=== PATIENT | female | born 1960 | race Caucasian/White ===

== ENCOUNTER 2020-03-11 10:54 | Outpatient (CLI) | payer OTHER, SELFPAY ==
--- NOTE | 2020-03-11 11:02 | MM_ITS ---
WS: [id number] BILATERAL SCREENING DIGITAL MAMMOGRAM WITH CAD HISTORY: SCREENING COMPARISON: 12/21/2018, 11/21/2017 and 01/09/2015 Bilateral CC and MLO views submitted. Computer aided detection analyzed. Breast composition: The breasts are heterogeneously dense, which may obscure small masses. No suspici ous masses, microcalcifications or architectural distortion. There is an area of distortion noted in the posterior lateral RIGHT breast which has been present on multiple prior examinations. No progress ion. No enlarging masses or calcifications. MM/[id number] IMPRESSION: BI-RADS: 2-Benign FOLLOW UP: 1 Year Follow-up
== END 2020-03-11 10:55 | disposition home or self-care (01) ==
LOC: RADSHAW 10:58
PROVIDERS: PCP Family Medicine; Visit Provider Nurse Practitioner Women's Health
DX: Z12.31 Encounter for screening mammogram for malignant neoplasm of breast (principal)
CPT/HCPCS: 77067

== ENCOUNTER → 2020-11-20 09:20 | Outpatient (BNVA) | payer OTHER, SELFPAY | PROVIDERS: PCP Family Medicine; Visit Provider Nurse Practitioner Women's Health | DX: Z12.4 Encounter for screening for malignant neoplasm of cervix (principal) | CPT/HCPCS: 88175 ==

== ENCOUNTER 2021-05-12 08:36 | Outpatient (CLI) | payer OTHER, SELFPAY ==
--- NOTE | 2021-05-12 08:47 | MM_ITS ---
WS: [id number] BILATERAL SCREENING 3D TOMOSYNTHESIS DIGITAL MAMMOGRAM WITH CAD HISTORY: Z12.39 - Encounter for other screening for malignant neoplasm. COMPARISON: 03/11/2020, 12/21/2018 and 01/09/2015 Bilateral CC and MLO views submitted. Computer aided detection analyzed. Breast composition: The breasts are heterogeneously dense, which may obscure small masses. No suspici ous masses, microcalcifications or architectural distortion. Asymmetries are stable throughout both b reasts. These asymmetries are most significant towards the upper outer quadrants. MM/[place] [id number] IMPRESSION: BI-RADS: 2-Benign FOLLOW UP: 1 Year Follow-up
== END 2021-05-12 08:37 | disposition home or self-care (01) ==
LOC: RADSHAW 08:39
PROVIDERS: PCP Family Medicine; Visit Provider Nurse Practitioner Women's Health
DX: Z12.31 Encounter for screening mammogram for malignant neoplasm of breast (principal)
CPT/HCPCS: 77063; 77067

== ENCOUNTER 2022-01-14 12:13 | Outpatient (CLI) | payer OTHER, SELFPAY ==
--- NOTE | 2022-01-14 13:00 | XR_ITS ---
WS: [id number] DEXA (DUAL ENERGY X-RAY ABSORPTIOMETRY) Bone mineral density was performed using a Tyto machine. HISTORY: Z78.0 - Asymptomatic menopausal state COMPARISON: 09/25/2017 Lumbar spine BMD (L1-L4): 0.977 g/cm2 T score: -1.7 Z score: -0.7 Total hip BMD: Left: 0.797 g/cm2. T score: -1.7 Z score: -0.9 Right: 0.809 g/cm2. T score: -1.6 Z score: -0.8 10 year probability of a major osteoporotic fracture is 17.8%. Compared to the prior study from 09/25/2017. Lumbar spine bone mineral density has decreased by 0.6%. Bilateral hips bone mineral density has decreased by 4.4%. XR/XR DEXA axial skeleton* [id number] IMPRESSION: OSTEOPENIA based upon the WHO classification for females. Significant decrease in bone mineral density within the hips since the prior .
== END 2022-01-14 12:14 | disposition home or self-care (01) ==
LOC: RAD 12:14
PROVIDERS: PCP Family Medicine; Visit Provider Nurse Practitioner Women's Health
DX: Z78.0 Asymptomatic menopausal state (principal); M85.80 Other specified disorders of bone density and structure, unspecified site
CPT/HCPCS: 77080

== ENCOUNTER 2022-07-07 08:03 | Outpatient (CLI) | payer OTHER, SELFPAY ==
--- NOTE | 2022-07-07 08:09 | MM_ITS ---
WS: [id number] Bilateral screening 3D tomosynthesis digital mammogram, 07/07/2022 Clinical Data: SCREENING Comparison: 05/12/2021, 03/11/2020, 12/21/2018, 11/21/2017, 01/09/2015, 08/21/2012, 10/10/2008, 09/14/2006. Findings: The breast parenchymal pattern shows heterogeneous density. No spiculated masses or clustered calcifi cations are seen. There are no secondary signs of carcinoma. MM/[place] [id number] Impression: 1. Negative bilateral mammogram unchanged. 2. Recommend annual screening mammograms. BIRADS: 1-Negative FOLLOW UP: 1 Year Follow-up The CAD case checker was used.
== END 2022-07-07 08:04 | disposition home or self-care (01) ==
LOC: RAD 08:06
PROVIDERS: PCP Family Medicine; Visit Provider Family Medicine
DX: Z12.31 Encounter for screening mammogram for malignant neoplasm of breast (principal)
CPT/HCPCS: 77063; 77067

== ENCOUNTER 2023-07-10 08:17 | Outpatient (CLI) | payer OTHER, SELFPAY ==
--- NOTE | 2023-07-10 08:24 | MM_ITS ---
WS: [id number] BILATERAL SCREENING DIGITAL TOMOSYNTHESIS MAMMOGRAM WITH CAD HISTORY: SCREENING COMPARISON: 07/07/2022, 05/12/2021 and 03/11/2020 Bilateral CC and MLO views with tomosynthesis and synthetic mammography submitted. Computer aided det ection analyzed. Breast composition: The breasts are heterogeneously dense, which may obscure small masses. No suspici ous masses, microcalcifications or architectural distortion. MM/[place] [id number] IMPRESSION: BI-RADS: 1-Negative FOLLOW UP: 1 Year Follow-up
== END 2023-07-10 08:18 | disposition home or self-care (01) ==
LOC: RAD 08:18
PROVIDERS: PCP Family Medicine; Visit Provider Nurse Practitioner Women's Health
DX: Z12.31 Encounter for screening mammogram for malignant neoplasm of breast (principal)
CPT/HCPCS: 77063; 77067

== ENCOUNTER → 2024-02-07 08:41 | Outpatient (BNVA) | payer OTHER, SELFPAY | PROVIDERS: PCP Family Medicine; Visit Provider Nurse Practitioner Women's Health | DX: N95.0 Postmenopausal bleeding (principal) | CPT/HCPCS: 76830 ==

== ENCOUNTER 2024-07-24 08:12 | Outpatient (CLI) | payer OTHER, SELFPAY ==
--- NOTE | 2024-07-24 08:13 | MM_ITS ---
WS: [id number] BILATERAL SCREENING DIGITAL TOMOSYNTHESIS MAMMOGRAM WITH CAD HISTORY: SCREENING COMPARISON: 07/10/2023, 07/07/2022, 11/21/2017 Bilateral CC and MLO views with tomosynthesis and synthetic mammography submitted. Computer aided detection analyzed. Breast composition: The breasts are heterogeneously dense, which may obscure small masses. No suspicious masses, microcalcifications or architectural distortion. Bilateral asymmetries in the upper outer quadrants greater on the RIGHT. No interval change since at least 2017. MM/MM scr BI tomosynthesis [id number] IMPRESSION: BI-RADS: 2 - Benign FOLLOW UP: 1 Year Follow-up
== END 2024-07-24 08:13 | disposition home or self-care (01) ==
PROVIDERS: PCP Family Medicine; Visit Provider Family Medicine
DX: Z12.31 Encounter for screening mammogram for malignant neoplasm of breast (principal); R92.333 Mammographic heterogeneous density, bilateral breasts; N64.89 Other specified disorders of breast
CPT/HCPCS: 77063; 77067

== ENCOUNTER 2024-10-19 08:12 | Emergency (ER) | payer OTHER, SELFPAY ==
--- OUTSIDE RECORDS SUMMARY | 2024-10-19 08:20 | XMS_ITS | Clinical Summary ---
Author Organization [facility] Address [address] [place] [address] Phone Care Team Providers Care Olive Grower Name Role Phone Son Guajardo MD Primary Care Provider [phone] Allergies Active Allergy Reactions Criticality Noted Date Comments Celecoxib Rash Low 08/31/2023 Medications acetaminophen (Tylenol Extra Strength) 500 mg tablet Take 500 mg by mouth daily. Active calcium carb/vitamin D3/vit K1 (CALCIUM SOFT CHEW ORAL) Take 1,200 mg by mouth daily. 12/20/2022 Active cetirizine (ZyrTEC) 10 mg tablet Take 10 mg by mouth daily. 06/19/2020 Active cholecalciferol , vitamin D3, (Vitamin D3) 5,000 unit Take 5,000 Units by mouth daily. 08/18/2015 Active B-complex with vitamin C (ALLBEE/C ORAL) 02/19/2020 Act mckay alendronate (FOSAMAX) 70 mg tablet Take 70 mg by mouth. Active Belkys 0.025 mg/24 hr patch Apply 1 Patch to skin as directed. 12/27/2023 Active estradioL (ESTRACE) 0.01% (0.1 mg/g) vaginal cream Insert vaginally. 12/27/2023 Active progesterone micronized (PROMETRIUM) 100 mg Capsule Take 200 mg by mouth daily. Active Estradiol-Noret hindrone Acet (COMBIPATCH) 0.05-0.25 mg/24 hr patch Apply 1 Patch to skin as directed twice weekly. 1 Patch 4 05/07/2024 Active Active Problems Problem Noted Date Diagnosed Date PMB (postmenopausal bleeding) 04/17/2024 Syncope 01/12/2023 Encounters Date Type Department Care Team Description 10/08/2024 External Device Data [facility] ABSTRACTION Provider, Abstract 08/27/2024 External Device Data [facility] ABSTRACTION Provider, Abstract 07/30/2024 External Device Data [facility] ABSTRACTION Provider, Abstract 07/24/2024 External Device Data [facility]STRACTION Provider, Abstract 07/24/2024 External Device Data [facility] ABSTRACTION Provider, Abstract from Last 3 Months Family History Medical History Relation Name Comments Arrhythmia Mother Roseanna Intermittent a- fib Diabetes Mother Roseanna Heart Attack Mother Roseanna Heart attack Se ptember 2019 Heart Disease Mother Roseanna High Cholesterol Mother Roseanna Hypertension Mother Roseanna Other Mother Roseanna Diabetes, kidne y failure Relation Name Status Comments Mother Roseanna Alive Sister Alive Social History Tobacco Use Types Packs/Day Years Used Date Smoking Tobacco: Former Cigarettes 0.3 5.2 1 980 - 09/22/1985 Smokeless Tobacco: Never Tobacco Cessation:Counseling Given: Not Answered Comments:I didn't smoke very often and quit almost 40 years ago Alcohol Use Standard Drinks/Week Comments Never 0 (1 standard drink = 0.6 oz pur e alcohol) Comments No Sex and Gender Information Value Date Recorded Sex Assigned at Not on file Legal Sex Female 3:49 PM CDT Gender Identity Not on file Sexual Orientation Not on file Last Filed Vital Signs Vital Sign Reading Time Taken Comments Blood Pressure 116/74 04/30/2024 9:05 AM HOG OPERATOR Pulse 51 04/17/2024 1:00 PM HOG OPERATOR Temperature 36.5 C (97.7 F) 04/17/2024 12:07 PM HOG OPERATOR Respiratory Rate 16 04/17/2024 1:00 PM HOG OPERATOR Oxygen Saturation 100% 04/17/2024 1:00 PM HOG OPERATOR Inhaled Oxygen Concentration - - Weight 70.4 kg (155 lb 3.2 oz) 04/30/2024 9:05 A M HOG OPERATOR Height 167.6 cm (5' 6 ) 04/30/2024 9:05 AM HOG OPERATOR Body Mass Index 25.05 04/30/2024 9:05 AM HOG OPERATOR Plan of Treatment Upcoming Encounters Date Type Department Care Team (Late st Contact Info) Description 12/27/2024 9:00 AM CDT Office Visit [facility] Odilia Andrew Jaison [address] [address] Luc Dickson, DO [address] [facility] [place] [address] Health Maintenance Due Date Last Done Comments Pre-Diabetes and Diabetes Screening 1961 HPV/Cotest (21-29) 1982 CERVICAL CANCER SCREENING 1991 HPV/Cotest (30-65) 1991 PAP SMEAR 1991 DTAP/TDAP/TD VACCINES (1 - Tdap) 09/23/1997 09/22/18 98 COLORECTAL SCREENING 2006 Colorectal Cancer Screening 2006 FIT-DNA Q 3 years 2006 FIT/FOBT Q 1 year 2006 Flex Sig/CT Colonography Q 5 years 2006 ZOSTER VACCINE (2 of 2) 10/10/2022 08/15/2022 BREAST CANCER SCREENING 07/09/2024 07/10/2023, 07/07 INFLUENZA VACCINE (#1) 2024 , 10/24/2022, 10/25/2021, Additional history exists RSV VACCINE (60+ or ) (1 - 1-dose 75+ series) 01/03/2036 COVID-19 Vaccine Completed 11/22/2023, , 02/03/2021, Additional history exists Procedures Procedure Name Priority Date/Time Associated Diagnosis Comments MAMMO SCREEN BILAT W OR WO CAD Routine 07/10/2023 9:39 AM CDT from Last 3 Months or Most Recently Relevant to Health Maintenance Results * MAMMO SCREEN BILAT W OR WO CAD (07/10/2023 9:39 AM CDT) Anatomical Region Laterality Modality Breast Bilateral Mammography us Abstract Provider MAMMO ORDERABLES Edited Result - Final from Last 3 Months or Most Recently Relevant to Health Maintenance Insurance [place] [id number] [address] [id number] Advance Directives For more information, please contact: [phone] * Full Code (Latest Code Status on File) Date Activated Date Inactivated Comments 04/17/2024 9:19 AM 04/17/2024 3:30 PM Care Teams Olive Grower Relationship Specialty Start Date End Date Son Guajardo MD [address] [phone] PCP - General Family Practice 12/16/22
[2024-10-19 08:29] VITALS: BP 125/82; PULSE 82; RESP 17; TEMP 37.1; O2SAT 96; BMI 25.4
[2024-10-19] MEDS: tetanus-dipt-pertussis 0.5 mL SDV IM (09:25)
[2024-10-19] MEDS: rabies vaccine 2.5 unit SDV IM (09:27)
[2024-10-19] MEDS: rabies IG 300 unit/mL SDV 1 mL 1440 UNIT IM (09:29)
--- NOTE | 2024-10-19 09:44 | PC.NURSE ---
After drawing up all medications and scanning all of the vaccines, pt decided that she did not want to get any of the rabies vaccines. Pt spoke with physician in detail regarding having the cat euthanized and tested before possibly receiving the vaccines. Pt wants to wait and if the cat comes back positive for rabies she will then get the vaccinations.
--- NOTE | 2024-10-19 09:45 | PC.NURSE ---
I wasted 1 rabavert rabies vaccination and 2 syringes of 4.8 ml of rabies immuno globulin vaccine. Tanika Peguero witnessed me disposing of the vaccinations.
--- NOTE | 2024-10-19 09:52 | W.ED.ANIMALB ---
HPI - Animal Bite General: Chief Complaint: Animal Bite Stated Complaint: Cat bite L pointer finger R shoulder Time Seen by Provider: 10/19/24 08:15 History of Present Illness: 64-year-old female presents emergency room after being bitten by a feral cat. Her sister had found an abandoned cath that seemed in poor health they took it and began nursing and after this the Was picked up by the patient was bit on the left index finger on the right shoulder. This occurred yesterday. Unsure of last tetanus. They still do have a cat in their possession. Related Data Home Medications ?Medication ?Instructions ?Recorded ?Confirmed cetirizine 10 mg capsule (Zyrtec) 10 mg PO DAILY PRN allergy symptoms 11/20/19 02/19/24 cholecalciferol (vitamin D3) 25 25 mcg PO DAILY 11/20/19 02/19/24 mcg (1,000 unit) capsule multivitamin 1 cap PO DAILY 11/20/19 02/19/24 calcium carbonate (Joo-Mint) 260 mg PO DAILY 12/16/22 02/19/24 clotrimazole 1 % topical cream 1 applic topical BID 02/19/24 02/19/24 (Antifungal (clotrimazole)) Previous Rx's ?Medication ?Instructions ?Recorded estradiol 0.01% (0.1 mg/gram) 1 g vaginal .COMPLEX #42.5 grams 12/26/23 vaginal cream (Estrace) estradiol 0.025 mg/24 hr See Rx Instructions .Route 02/22/24 semiweekly transdermal patch .COMPLEX #24 patches (Belkys) progesterone micronized 100 mg See Rx Instructions .Route 10/07/24 capsule .COMPLEX #180 caps amoxicillin 875 mg-potassium 1 tab PO BID #20 tabs 10/19/24 clavulanate 125 mg tablet Allergies Allergy/AdvReac Type Severity Reaction Status Date / Time celecoxib (From Celebrex) Allergy ALGY-Rash Verified 10/19/24 08:31 [facility] ED PFSH: Medical History Osteoporosis followed by [facility]; waiting to get approval for Prolia No pertinent past medical history neghx: htn,dm,thyroid,dvt/pe PCP: Son Guajardo Surgical History History of tonsillectomy and adenoidectomy History of appendectomy H/O tubal ligation Done at the time of section. H/O section Family History Mother Diabetes Hypertension Heart disease Hyperlipidemia Denies family history of Colon cancer Ovarian cancer Breast cancer Family history of thyroid problem Uterine cancer Stroke Social History Smoking and tobacco/nicotine status: never used tobacco/nicotine Physical Exam Const: COMMON NORMALS: no acute distress GENERAL APPEARANCE: cooperative and comfortable ORIENTATION/CONSCIOUSNESS: Yes awake, Yes oriented to person, Yes oriented to place and Yes oriented to time HENMT: COMMON NORMALS: normocephalic, atraumatic and hearing grossly normal bilaterally HEAD & SCALP: normocephalic and atraumatic Resp: COMMON NORMALS: normal respiratory effort, No retractions and No use of accessory muscles Extremity: COMMON NORMALS: normal to inspection, capillary refill normal, no clubbing, cyanosis or edema, no calf tenderness and no pedal edema Neuro: SENSORIUM/ORIENTATION: Yes oriented to person, Yes oriented to place and Yes oriented to time Skin: OTHER: Bite nunez in the left index finger and anterior shoulder. Course Vital Signs: Vital signs: Vital Signs Temperature 98.8 F 10/19/24 08:29 Pulse Rate 75 10/19/24 09:53 Respiratory Rate 17 10/19/24 08:29 Blood Pressure 133/80 10/19/24 09:53 Pulse Oximetry 96 10/19/24 09:53 Oxygen Delivery Me thod Room Air 10/19/24 08:29 MDM - Animal Bite Medical Decision Making Currently no signs of infection of the bite nunez cussed the patient with Bites we typically will always start on IV antibiotics. Recommend started on Augmentin twice daily for 1 week. Long discussion about rabies prophylaxis. They still do have the animal in question in their custody. Initially we are going to have that animal euthanized and tested but it is the weekend were unable to find a place or wait to get this done. We called [facility] they said we have to check with the animal shelters. There is open evidently today. Ultimately patient after initially declining the vaccination and immunoglobulin decided to go ahead and receive it. Will start her on the postexposure prophylaxis. She is going to pursue possibly having the animal tested next week and decide then whether or not she will complete the course. Advised she should only stop the vaccination series if the animal is tested and test negative Medical Records I reviewed the patient's medical records. No radiology studies performed this visit Discharge Plan Discharge Patient Disposition: Home Clinical Impression: Cat bite, Need for post exposure prophylaxis for rabies Condition: Stable Prescriptions: New amoxicillin-pot clavulanate 875-125 mg tablet 1 tab PO BID Qty: 20 0RF No Action multivitamin Capsule 1 cap PO DAILY cholecalciferol (vitamin D3) 25 mcg (1,000 unit) capsule 25 mcg PO DAILY Zyrtec 10 mg capsule 10 mg PO DAILY PRN (Reason: allergy symptoms) calcium carbonate [Joo-Mint] 260 mg calcium (650 mg) tablet,chewable 260 mg PO DAILY estradiol [Estrace] 0.01 % (0.1 mg/gram) cream 1 g vaginal .COMPLEX Qty: 42.5 3RF Rx Instructions: insert 1 gram at hs for 14 nights then 2-3 weekly-- space out doses clotrimazole [Antifungal (clotrimazole)] 1 % cream 1 applic topical BID estradiol [Belkys] 0.025 mg/24 hr patch semiweekly See Rx Instructions .ROUTE .COMPLEX Qty: 24 3RF Dose Instruction: APPLY ONE PATCH transdermally twice weekly Rx Instructions: APPLY ONE PATCH transdermally twice weekly progesterone micronized 100 mg capsule See Rx Instructions .ROUTE .COMPLEX Qty: 180 0RF Dose Instruction: TAKE 2 CAPSULES BY MOUTH AT BEDTIME Rx Instructions: TAKE 2 CAPSULES BY MOUTH AT BEDTIME Discharge Orders: Discharge ED (Routine); Ordered 10/19/24 Ordered By: Uday Bonilla Referrals: Son Guajardo MD [Primary Care Provider, Family Practice] Discharge Diet: Usual diet Discharge Activity: Resume usual activity Patient Instructions: Rabies Vaccine (By injection), Rabies Immune Globulin (By injection), Animal Bite (ED), Rabies (ED), Opioid Safety, Pain Management, Patient Portal & Manjinder Instructions Activity Restrictions/Additional Instructions: Thank you for choosing [facility] for your healthcare needs today. It is very important that you follow up as instructed or that you return to the Emergency Department should you have concerns or if your condition changes or worsens in any way. You were seen in the emergency room after a bite from a cat with unknown history. After discussion you opted to have the animal tested and begin the rabies vaccine if it is positive. If you are advised that the animal tested positive you should return to the emergency room to initiate rabies vaccination. Print Language: Nicaraguan Coding Level of Care Code ED Metal Burrer for [place] Cuevas
[2024-10-19 09:53] VITALS: BP 133/80; PULSE 75; O2SAT 96
--- NOTE | 2024-10-19 11:07 | PC.NURSE ---
After wasting the rabies vaccines the pt changed her mind again and decided that she wanted to start the rabies vaccinations series and get the shots. Jayna from pharmacy had to bring the vaccinations down to the ER because the EMR would not let us order 2 sets of vaccinations. Pt received the Rabies vaccine Rabavert 2.5 ml lot # [id number] expiration date 03/2027 administered in her R deltoid and Rabies immuno globulin 4.8 ml divided into 2 shots of 2.4 ml a piece one shot administered in R hip and one shot administered into L hip lot # [id number] expiration date 06/27/2027.
== END 2024-10-19 10:47 | disposition home or self-care (01) ==
PROVIDERS: Emergency Provider Family Medicine; PCP Family Medicine
DX: S61.251A Open bite of left index finger without damage to nail, initial encounter (principal); S41.051A Open bite of right shoulder, initial encounter; W55.01XA Bitten by cat, initial encounter; Z20.3 Contact with and (suspected) exposure to rabies; Z29.14 Encounter for prophylactic rabies immune globulin
CPT/HCPCS: 90375; 90471; 90675; 90715; 96372; 99283

== ENCOUNTER 2024-10-22 09:30 | Oncology outpatient (recurring) (ONCR) | payer OTHER, SELFPAY ==
[2024-10-10 16:01] VITALS: BP 98/63; PULSE 60; TEMP 36; O2SAT 97
[2024-10-10 16:44] VITALS: BP 106/67; PULSE 61; TEMP 36.7; O2SAT 97
[2024-10-22] MEDS: rabies vaccine 2.5 unit SDV IM (10:27)
== END 2024-11-03 23:59 | disposition home or self-care (01) ==
PROVIDERS: PCP Family Medicine; Visit Provider Family Medicine
DX: Z53.9 Procedure and treatment not carried out, unspecified reason; Z20.3 Contact with and (suspected) exposure to rabies; Z23 Encounter for immunization; W55.01XA Bitten by cat, initial encounter
CPT/HCPCS: 90471; 90675; 96365; J3489

== ENCOUNTER 2024-10-26 06:50 | Emergency (ER) | payer OTHER, SELFPAY ==
--- OUTSIDE RECORDS SUMMARY | 2024-10-26 06:56 | XMS_ITS | Clinical Summary ---
Author Organization [facility] Address [address] [place] [address] Phone Care Team Providers Care Fish Receiver Name Role Phone Son Guajardo MD Primary Care Provider [phone] Allergies Active Allergy Reactions Criticality Noted Date [...] drink = 0.6 oz pur e alcohol) Feeling Safe Answer Date Recorded Are you in a relationship wi th someone who hurts you emotionally and/or physically? No 04/17/2024 Comments No Sex and Gender Information Value Date Recorded Sex Assigned at Not on file Legal Sex Female 3:49 PM CDT Gender Identity Not on file Sexual Orientation Not on file Last Filed Vital Signs Vital Sign Reading Time Taken Comments Blood Pressure 116/74 04/30/2024 9:05 AM EMBROIDERY PATTERNMAKER Pulse 51 04/17/2024 1:00 PM EMBROIDERY PATTERNMAKER Temperature 36.5 C (97.7 F) 04/17/2024 12:07 PM EMBROIDERY PATTERNMAKER Respiratory Rate 16 04/17/2024 1:00 PM EMBROIDERY PATTERNMAKER Oxygen Saturation 100% 04/17/2024 1:00 PM EMBROIDERY PATTERNMAKER Inhaled Oxygen Concentration - - Weight 70.4 kg (155 lb 3.2 oz) 04/30/2024 9:05 A M EMBROIDERY PATTERNMAKER Height 167.6 cm (5' 6 ) 04/30/2024 9:05 AM EMBROIDERY PATTERNMAKER Body Mass Index 25.05 04/30/2024 9:05 AM EMBROIDERY PATTERNMAKER Plan of Treatment Upcoming Encounters Date Type Department Care Team (Late st Contact Info) Description 12/27/2024 9:00 AM CDT Office Visit [facility] Odilia Andrew Sargent [address] [phone] Luc Dickson, DO [address] [facility] [address] [place] [address] Health Maintenance Due Date Last [...] Most Recently Relevant to Health Maintenance Insurance [place] [id number] [address] [id number] Advance Directives For more information, please contact: [phone] * Full Code (Latest Code Status on File) Date Activated Date Inactivated Comments 04/17/2024 9:19 AM 04/17/2024 3:30 PM Care Teams Fish Receiver Relationship Specialty Start Date End Date Son Guajardo MD [address] [phone] PCP - General Family Practice 12/16/22
[2024-10-26 07:01] VITALS: BP 124/78; PULSE 64; RESP 18; TEMP 36.7; O2SAT 98
--- NOTE | 2024-10-26 07:18 | ED_ITS ---
HPI - General Adult General: Chief complaint: General Medical Stated complaint: 3RD rabies shot Time Seen by Provider: 10/26/24 07:11 History of Present Illness: 64-year-old female who presents emergenc y room for routine rabies vaccination. Her initial encounter was on 816. She is here for her third vaccination no problems or complications about infection at the sites where she was bitten she was on prophylactic biotics Related Data Home Medications ?Medication ?Instructions ?Recorded ?Confirmed cetirizine 10 mg capsule (Zyrtec) 10 mg PO DAILY PRN a llergy symptoms 11/20/19 02/19/24 cholecalciferol (vitamin D3) 25 25 mcg PO DAILY 02/19/24 mcg (1,000 unit) capsule multivitamin 1 cap PO DAILY 11/20/1902/03 calcium carbonate (Joo-Mint) 260 mg PO DAILY 12/16/22 02/19/24 clotrimazole 1 % topical cream 1 applic topical BID 02/19/24 (Antifungal (clotrimazole)) Previous Rx's ?Medication ?Instructions ?Recorded estradiol 0.01% (0.1 mg/gram) 1 g vaginal .COMPLEX #42 .5 grams 12/26/23 vaginal cream (Estrace) estradiol 0.025 mg/24 hr See Rx Instructions .Route 1 04/24/23 semiweekly transdermal patch .COMPLEX #24 patches (Belkys) progesterone micronized 100 mg See Rx Instructions .[place] 10/07/24 capsule .COMPLEX #180 caps amoxicillin 875 mg-potassium 1 tab PO BID #20 tabs clavulanate 125 mg tablet Allergies Allergy/AdvReac Type Severity Reaction Status Date / Time celecoxib (From Celebrex) Allergy ALGY-Rash Verified 10/19/24 08:31 PENDING SALE TO [facility] ED PFSH: Medical History Osteoporosis followed by [facility]; waiting to get approval for Prolia No pertinent past medical history neghx: htn,dm,thyroid,dvt/pe PCP: Son Guajardo Surgical History History of tonsillectomy and adenoidectomy History of appendectomy H/O tubal ligation Done at the time of section. H/O section Family History Mother Diabetes Hypertension Heart disease Hyperlipidemia Denies family history of Colon cancer Ovarian cancer Breast cancer Family history of thyroid problem Uterine cancer Stroke Social History Smoking and tobacco/nicotine status: never used tobacco/nicotine Physical Exam Const: COMMON NORMALS: no acute distress GENERAL APPEARANCE: cooperative and comfortable ORIENTATION/CONSCIOUSNESS: Yes awake, Yes oriented to person, Yes oriented to place and Yes oriented to time HENMT: COMMON NORMALS: normocephalic, atraumatic and hearing grossly normal bilaterally HEAD & SCALP: normocephalic and atraumatic Extremity: COMMON NORMALS: normal to inspection, capillary refill normal, no clubbing, cyanosis or edema, no calf tenderness and no pedal edema Neuro: SENSORIUM/ORIENTATION: Yes oriented to person, Yes oriented to place and Yes oriented to time Skin: COMMON NORMALS: no rashes or lesions noted GENERAL SKIN EXAM: no rashes or lesions noted Course Vital Signs: Vital signs: Vital Signs Temperature 98.1 F 10/26/24 07:01 Pulse Rate 64 10/26/24 07:01 Respiratory Rate 18 10/26/24 07:01 Blood Pressure 124/78 10/26/24 07:01 Pulse Oximetry 98 10/26/24 07:01 Oxygen Delivery Me thod Room Air 10/26/24 07:01 MDM - General Adult Medical Decision Making Routine vaccination complete course as scheduled No radiology studies performed this visit Discharge Plan Discharge Patient Disposition: Home Clinical Impression: Cat bite, Need for post exposure prophylaxis for rabies Condition: Stable Prescriptions: No Action multivitamin Capsule 1 cap PO DAILY cholecalciferol (vitamin D3) 25 mcg (1,000 unit) capsule 25 mcg PO DAILY Zyrtec 10 mg capsule 10 mg PO DAILY PRN (Reason: allergy symptoms) calcium carbonate [Joo-Mint] 260 mg calcium (650 mg) tablet,chewable 260 mg PO DAILY estradiol [Estrace] 0.01 % (0.1 mg/gram) cream 1 g vaginal .COMPLEX Qty: 42.5 3RF Rx Instructions: insert 1 gram at hs for 14 nights then 2-3 weekly-- space out doses clotrimazole [Antifungal (clotrimazole)] 1 % cream 1 applic topical BID estradiol [Belkys] 0.025 mg/24 hr patch semiweekly See Rx Instructions .ROUTE .COMPLEX Qty: 24 3RF Dose Instruction: APPLY ONE PATCH transdermally twice weekly Rx Instructions: APPLY ONE PATCH transdermally twice weekly progesterone micronized 100 mg capsule See Rx Instructions .ROUTE .COMPLEX Qty: 180 0RF Dose Instruction: TAKE 2 CAPSULES BY MOUTH AT BEDTIME Rx Instructions: TAKE 2 CAPSULES BY MOUTH AT BEDTIME amoxicillin-pot clavulanate 875-125 mg tablet 1 tab PO BID Qty: 20 0RF Discharge Orders: Discharge ED (Routine); Ordered 10/26/24 Ordered By: Uday Bonilla Referrals: Son Guajardo MD [Primary Care Provider, Family Practice] Discharge Diet: Usual diet Discharge Activity: Resume usual activity Patient Instructions: Opioid Safety, Pain Management, Patient Portal & Manjinder Instructions Activity Restrictions/Additional Instructions: Thank you for choosing [facility] for your healthcare needs today. It is very important that you follow up as instructed or that you return to the Emergency Department should you have concerns or if your condition changes or worsens in any way. 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
[2024-10-26] MEDS: rabies vaccine 2.5 unit SDV IM (07:40)
== END 2024-10-26 07:41 | disposition home or self-care (01) ==
PROVIDERS: Emergency Provider Family Medicine; PCP Family Medicine
DX: Z23 Encounter for immunization (principal)
CPT/HCPCS: 90471; 90675; 99283

== ENCOUNTER 2024-11-02 06:56 | Emergency (ER) | payer OTHER, SELFPAY ==
[2024-11-02 06:59] VITALS: BP 126/71; PULSE 68; RESP 16; TEMP 36.8; O2SAT 99; BMI 25.2
--- OUTSIDE RECORDS SUMMARY | 2024-11-02 07:02 | XMS_ITS | Clinical Summary ---
Author Organization [facility] Address [address] [place] [address] Phone Care Team Providers Care General Internal Medicine Doctor Name Role Phone Son Guajardo MD Primary Care Provider [phone] Allergies Active Allergy Reactions Criticality Noted Date [...] Comments Blood Pressure 116/74 04/30/2024 9:05 AM RESEARCH PHARMACIST Pulse 51 04/17/2024 1:00 PM RESEARCH PHARMACIST Temperature 36.5 C (97.7 F) 04/17/2024 12:07 PM RESEARCH PHARMACIST Respiratory Rate 16 04/17/2024 1:00 PM RESEARCH PHARMACIST Oxygen Saturation 100% 04/17/2024 1:00 PM RESEARCH PHARMACIST Inhaled Oxygen Concentration - - Weight 70.4 kg (155 lb 3.2 oz) 04/30/2024 9:05 A M RESEARCH PHARMACIST Height 167.6 cm (5' 6 ) 04/30/2024 9:05 AM RESEARCH PHARMACIST Body Mass Index 25.05 04/30/2024 9:05 AM RESEARCH PHARMACIST Plan of Treatment Upcoming Encounters Date Type Department Care Team (Late st Contact Info) Description 12/27/2024 9:00 AM CDT Office Visit [facility] Odilia Andrew Steens [address] [address] Luc Dickson, DO [address] [facility] [address] [place] [address] Health Maintenance Due Date Last [...] Most Recently Relevant to Health Maintenance Insurance [employer] EXCHANGE [id number] [address] [id number] Advance Directives For more information, please contact: [phone] * Full Code (Latest Code Status on File) Date Activated Date Inactivated Comments 04/17/2024 9:19 AM 04/17/2024 3:30 PM Care Teams General Internal Medicine Doctor Relationship Specialty Start Date End Date Son Guajardo MD [address] [id number] PCP - General Family Practice 12/16/22
--- NOTE | 2024-11-02 07:04 | W.ED.RECABL ---
HPI - Recheck/Abnormal Lab/Rx General: Chief Complaint: Recheck/Abnormal Lab/Rx Stated Complaint: 4th rabies shot Time Seen by Provider: 11/02/24 07:02 Source: patient Mode of arrival: ambulatory Limitations: no limitations History of Present Illness: 64-year-old female who is here for her fourth rabies shot in the series after being bit by a cat. She has no complaints from the cat bite denies any redness she has no other complaints at this time Related Data Home Medications ?Medication ?Instructions ?Recorded ?Confirmed cetirizine 10 mg capsule (Zyrtec) 10 mg PO DAILY PRN allergy symptoms 11/20/19 02/19/24 cholecalciferol (vitamin D3) 25 25 mcg PO DAILY 11/20/19 02/19/24 mcg (1,000 unit) capsule multivitamin 1 cap PO DAILY 11/20/19 02/19/24 calcium carbonate (Joo-Mint) 260 mg PO DAILY 12/16/22 02/19/24 clotrimazole 1 % topical cream 1 applic topical BID 02/19/24 02/19/24 (Antifungal (clotrimazole)) Previous Rx's ?Medication ?Instructions ?Recorded estradiol 0.01% (0.1 mg/gram) 1 g vaginal .COMPLEX #42.5 grams 12/26/23 vaginal cream (Estrace) estradiol 0.025 mg/24 hr See Rx Instructions .Route 02/22/24 semiweekly transdermal patch .COMPLEX #24 patches (Belkys) progesterone micronized 100 mg See Rx Instructions .Route 10/07/24 capsule .COMPLEX #180 caps amoxicillin 875 mg-potassium 1 tab PO BID #20 tabs 10/19/24 clavulanate 125 mg tablet Allergies Allergy/AdvReac Type Severity Reaction Status Date / Time celecoxib (From Celebrex) Allergy ALGY-Rash Verified 10/19/24 08:31 Review of Systems Const: Denies: fever(s) Musc: Denies: extremity pain Skin/Breast: Denies: rash PFSH ED PFSH: Medical History Osteoporosis followed by [facility]; waiting to get approval for Prolia No pertinent past medical history neghx: htn,dm,thyroid,dvt/pe PCP: Son Guajardo Surgical History History of tonsillectomy and adenoidectomy History of appendectomy H/O tubal ligation Done at the time of section. H/O section Family History Mother Diabetes Hypertension Heart disease Hyperlipidemia Denies family history of Colon cancer Ovarian cancer Breast cancer Family history of thyroid problem Uterine cancer Stroke Social History Smoking and tobacco/nicotine status: never used tobacco/nicotine Physical Exam Const: COMMON NORMALS: no acute distress Chest: COMMONS NORMALS: normal inspection of the chest Resp: COMMON NORMALS: normal respiratory effort Extremity: COMMON NORMALS: normal to inspection Psych: COMMON NORMALS: mental status grossly normal Course Vital Signs: Vital signs: Vital Signs Temperature 98.3 F 11/02/24 06:59 Pulse Rate 68 11/02/24 06:59 Respiratory Rate 16 11/02/24 06:59 Blood Pressure 126/71 11/02/24 06:59 Pulse Oximetry 99 11/02/24 06:59 Oxygen Delivery Me thod Room Air 11/02/24 06:59 MDM - Recheck/Abnormal Lab/Rx Medical Decision Making Patient presents here for her fourth rabies shot she has no other complaints she is stable for discharge Medical Records I reviewed the patient's medical records. No radiology studies performed this visit Discharge Plan Discharge Patient Disposition: Home Clinical Impression: Rabies exposure Condition: Stable Prescriptions: No Action multivitamin Capsule 1 cap PO DAILY cholecalciferol (vitamin D3) 25 mcg (1,000 unit) capsule 25 mcg PO DAILY Zyrtec 10 mg capsule 10 mg PO DAILY PRN (Reason: allergy symptoms) calcium carbonate [Joo-Mint] 260 mg calcium (650 mg) tablet,chewable 260 mg PO DAILY estradiol [Estrace] 0.01 % (0.1 mg/gram) cream 1 g vaginal .COMPLEX Qty: 42.5 3RF Rx Instructions: insert 1 gram at hs for 14 nights then 2-3 weekly-- space out doses clotrimazole [Antifungal (clotrimazole)] 1 % cream 1 applic topical BID estradiol [Belkys] 0.025 mg/24 hr patch semiweekly See Rx Instructions .ROUTE .COMPLEX Qty: 24 3RF Dose Instruction: APPLY ONE PATCH transdermally twice weekly Rx Instructions: APPLY ONE PATCH transdermally twice weekly progesterone micronized 100 mg capsule See Rx Instructions .ROUTE .COMPLEX Qty: 180 0RF Dose Instruction: TAKE 2 CAPSULES BY MOUTH AT BEDTIME Rx Instructions: TAKE 2 CAPSULES BY MOUTH AT BEDTIME amoxicillin-pot clavulanate 875-125 mg tablet 1 tab PO BID Qty: 20 0RF Discharge Orders: Discharge ED (Routine); Ordered 11/02/24 Ordered By: Felicity Al Referrals: Son Guajardo MD [Primary Care Provider, Family Practice] - 4-7 days Discharge Diet: Advance as tolerated Discharge Activity: Resume usual activity Patient Instructions: Rabies Vaccine (By injection), Rabies (ED) Print Language: Turkish Coding Level of Care Code 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
[2024-11-02] MEDS: rabies vaccine 2.5 unit SDV IM (07:12)
[2024-11-02 07:16] VITALS: BP 129/71; PULSE 78; O2SAT 98
== END 2024-11-02 07:16 | disposition home or self-care (01) ==
PROVIDERS: Emergency Provider Emergency Medicine; PCP Family Medicine
DX: Z20.3 Contact with and (suspected) exposure to rabies (principal); Z29.14 Encounter for prophylactic rabies immune globulin
CPT/HCPCS: 90471; 90675; 99283